=== PATIENT | female | born 1990 | race Caucasian/White ===

== ENCOUNTER 2017-11-23 19:10 | Emergency (ER) | payer MEDICAID ==
[2017-11-24 01:24] VITALS: BP 156/85
== END 2017-11-24 00:45 | disposition home or self-care (01) ==
LOC: ED 19:10
DX: M25.512 Pain in left shoulder (principal); G43.909 Migraine, unspecified, not intractable, without status migrainosus; Z86.69 Personal history of other diseases of the nervous system and sense organs; V43.52XA Car driver injured in collision with other type car in traffic accident, initial encounter; Y93.89 Activity, other specified; Y99.8 Other external cause status; Y92.481 Parking lot as the place of occurrence of the external cause

== ENCOUNTER 2020-12-21 14:16 | Emergency (ER) | payer MEDICAID ==
[~2020-12-21] VITALS: Ht 157.5 cm; Wt 92.5 kg
[2020-12-21 14:30] VITALS: BP 127/62; Ht 157.5 cm; Wt 92.5 kg
== END 2020-12-21 15:38 | disposition home or self-care (01) ==
LOC: ED 14:16
DX: M67.431 Ganglion, right wrist (principal); G43.909 Migraine, unspecified, not intractable, without status migrainosus